=== PATIENT | male | born 1955 | race Caucasian/White ===

== ENCOUNTER 2017-06-28 22:45 | Emergency (ER) | payer OTHER ==
[2017-06-28 22:59] VITALS: BP 215/132; PULSE 86; TEMP 97.8; BMI 29.2
--- NOTE | 2017-06-28 23:39 | PDOC ---
History of Present Illness - General History Source: Patient Exam Limitations: No Limitations - History of Present Illness Initial Comments: 06/29/17 00:11 The patient is a 62 year old male with a significant past medical history recurrent non Hodgkin's lymphoma stage III, with chemotherapy (2014) and radiation (2016), glaucoma, and asthma, presenting to the Emergency Department with left eye pain and headache which has worsened over the night. The patient admits that he was diagnosed with non Hodgkins lymphoma in 2014 in his right armpit with metastasis to his abdomen, for which he underwent chemotherapy. He states that the cancer returned about one year later, and metastasized to his left eye. He admits that his eye at one point was swollen shut. He then underwent radiation, which resolved the eye swelling and pain, though he admits his doctors were concerned that the lymphoma may have spread into the head or brain. He states that the radiation finished about one year ago, and that he is here visiting family as he lives in [place]. He is here today due to eye pain behind his left eye that feels similar to the previous eye pain he has experienced. He admits to a headache, 12/10 in severity, for which he took Tramadol with little relief. The patient states that he was due to return to chemotherapy last week, though pushed it off as he is not in [place] and would rather be with his family. The patient denies blurry vision, or double vision. Patient denies chest pain, palpitations, and shortness of breath. Patient denies lightheadedness, or loss of consciousness. Patient denies fever, chills, or cough. <Hillary Denny - Last Filed: 06/29/17 00:11> <Sharla Olmos - Last Filed: 06/29/17 02:36> - General Chief Complaint: Pain Stated Complaint: PAIN Time Seen by Provider: 06/28/17 23:36 Past History <Hillary Denny - Last Filed: 06/29/17 00:11> - Past Medical History Asthma: Yes Cancer: Yes (Abdomen, underarm, liver, kidneys, brain) GI Disorders: Yes (Diverticulitis) Other medical history: Neuropathy - Psycho/Social/Smoking Cessation Hx Suicidal Ideation: No Smoking History: Never smoked Information on smoking cessation initiated: No Hx Alcohol Use: No Drug/Substance Use Hx: No Substance Use Type: None <Sharla Olmos - Last Filed: 06/29/17 02:36> - Past Medical History Allergies/Adverse Reactions: Allergies Allergy/AdvReac Type Severity Reaction Status Date / Time albuterol Allergy Severe Verified 06/28/17 22:52 meperidine HCl [From Demerol] Allergy Severe Verified 06/28/17 22:52 Penicillins Allergy Severe Verified 06/28/17 22:52 Home Medications: Ambulatory Orders Oxycodone HCl/Acetaminophen [Percocet 5-325 mg Tablet] 1 - 2 tab PO Q6H PRN #20 tab MDD 8 tabs 06/29/17 Review of Systems - Review of Systems Able to Perform ROS?: Yes Comments:: 06/29/17 00:12 GENERAL/CONSTITUTIONAL: No fever or chills. No weakness. HEAD, EYES, EARS, NOSE AND THROAT: + left eye pain. No change in vision. No ear pain or discharge. No sore throat. GASTROINTESTINAL: No nausea, vomiting, diarrhea or constipation. GENITOURINARY: No dysuria, frequency, or change in urination. CARDIOVASCULAR: No chest pain or shortness of breath. RESPIRATORY: No cough, wheezing, or hemoptysis. MUSCULOSKELETAL: No joint or muscle swelling or pain. No neck or back pain. SKIN: No rash NEUROLOGIC: + headache. No vertigo, loss of consciousness, or change in strength /sensation. ENDOCRINE: No increased thirst. No abnormal weight change. HEMATOLOGIC/LYMPHATIC: No anemia, easy bleeding, or history of blood clots. ALLERGIC/IMMUNOLOGIC: No hives or skin allergy. <Hillary Denny - Last Filed: 06/29/17 00:11> *Physical Exam - Vital Signs Last Vital Signs Temp Pulse Resp BP Pulse Ox 97.8 F 86 20 215/132 99 06/28/17 22:53 06/28/17 22:53 06/28/17 22:53 06/28/17 22:53 06/28/17 22:53 <Hillary Denny - Last Filed: 06/29/17 00:11> - Vital Signs Last Vital Signs Temp Pulse Resp BP Pulse Ox 97.8 F 86 20 215/132 99 06/28/17 22:53 06/28/17 22:53 06/28/17 22:53 06/28/17 22:53 06/28/17 22:53 - Physical Exam Comments: GENERAL: Awake, alert, and fully oriented, appears in obvious discomfort. HEAD: No signs of trauma EYES: Slight L proptosis. PERRLA, EOMI, sclera anicteric, conjunctiva clear. ENT: Auricles normal inspection, hearing grossly normal, nares patent, oropharynx clear without exudates. Moist mucosa. R munoz's palsy. NECK: Normal ROM, supple, no lymphadenopathy, JVD, or masses LUNGS: Breath sounds equal, clear to auscultation bilaterally. No wheezes, and no crackles HEART: Regular rate and rhythm, normal S1 and S2, no murmurs, rubs or gallops ABDOMEN: Soft, nontender, normoactive bowel sounds. No guarding, no rebound. No masses EXTREMITIES: Normal range of motion, no edema. No clubbing or cyanosis. No cords, erythema, or tenderness NEUROLOGICAL: Cranial nerves II through XII grossly intact. Normal speech, normal gait SKIN: Warm, Dry, normal turgor, no rashes or lesions noted. <Sharla Olmos - Last Filed: 06/29/17 02:36> ED Treatment Course - Medications Given in the ED: ED Medications Discontinued Medications Generic Name Dose Route Start Last Admin Trade Name Freq PRN Reason Stop Dose Admin Morphine Sulfate 4 mg 06/29/17 00:04 06/29/17 00:10 Morphine Injection - IVPUSH 06/29/17 00:05 4 mg ONCE ONE Administration <Hillary Denny - Last Filed: 06/29/17 00:11> Medical Decision Making - Medical Decision Making Pt with terminal non-Hodgkins lymphoma, presenting with L eye pain and LU. He has intermittent history of similar pain, related to spread of his CA. This is unchanged from prior, therefore there was no indication for imaging. He was previously on fentanyl patch for pain, but states that he did not want to continue it, did not like the side effects, and prefers to be off medication whenever possible for quality of life. However, today the pain was severe and was not relieved by tramadol. He agreed to IV placement to give morphine. After 4 mg morphine the pain was much better, and even better after 2 additional mg. He did not want any additional medication for pain, however, I counseled him that the pain may return when the morphine wears off. 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 He is here visiting family , lives in [place]. I offered rx to help him avoid additional ED visits, as he prefers to avoid hospitals, again, for quality of life reasons. <Sharla Olmos - Last Filed: 06/29/17 02:36> *DC/Admit/Observation/Transfer - Attestations Scribe Attestion: 06/29/17 00:12 Documentation prepared by Hillary Denny, acting as medical records coordinator for Sharla Olmos MD. <Hillary Denny - Last Filed: 06/29/17 00:11> - Discharge Dispostion Admit: No <Sharla Olmos - Last Filed: 06/29/17 02:36> Diagnosis at time of Disposition: Pain, eye, left - Discharge Dispostion Disposition: HOME Condition at time of disposition: Improved - Prescriptions Prescriptions: Oxycodone HCl/Acetaminophen [Percocet 5-325 mg Tablet] 1 - 2 tab PO Q6H PRN #20 tab MDD 8 tabs PRN Reason: Severe Pain - Patient Instructions Printed Discharge Instructions: DI for Acute Pain -- Adult
[2017-06-28] MEDS ORDERED: morphine CARPU-JECT 4 MG/1 ML DISP.SYRIN ONE (23:59)
[2017-06-29] MEDS ORDERED: morphine CARPU-JECT 4 MG/1 ML DISP.SYRIN IVPUSH ONE (00:04)
[2017-06-29] MEDS ORDERED: morphine CARPU-JECT 2 MG/1 ML DISP.SYRIN IVPUSH ONE (01:05)
[2017-06-29] MEDS ORDERED: morphine CARPU-JECT 4 MG/1 ML DISP.SYRIN ONE (01:13)
== END 2017-06-29 01:31 | disposition home or self-care (01) ==
LOC: JER 22:45
PROC: 3E033NZ Introduction of Analgesics, Hypnotics, Sedatives into Peripheral Vein, Percutaneous Approach (ICD-10-PCS; principal; 2017-06-28)
DX: H57.12 Ocular pain, left eye (principal); C85.90 Non-Hodgkin lymphoma, unspecified, unspecified site
CPT/HCPCS: 99281-25

== ENCOUNTER 2017-07-03 20:49 | Emergency (ER) | payer OTHER ==
[2017-07-03 21:07] VITALS: BMI 29.0
[2017-07-03] MEDS ORDERED: morphine CARPU-JECT 4 MG/1 ML DISP.SYRIN IVPUSH ONE ×2 (22:35→23:16)
--- NOTE | 2017-07-03 22:35 | PDOC ---
History of Present Illness - General History Source: Patient, Old Records Exam Limitations: No Limitations - History of Present Illness Initial Comments: 07/03/17 23:40 The patient is a 62 year old male with a significant PMH of recurrent non Hodgkins lymphoma stage III with chemotherapy (2014) and radiation (2016), glaucoma, and asthma who presents to the emergency department with a headache beginning approximately 5 days ago. The patient describes the headache as a hammering sensation radiating to his left eye and rated 10/10 in severity. The patient also reports bilateral lower extremity swelling. The patient admits being diagnosed with lymphoma in 2014 in his right armpit with metastasis to the abdomen, which he underwent chemotherapy and radiation for. The patient had a similar episode in 2016, but the headache and left eye pain was reduced through radiation. The patient notes that he came to [place] from [place] to visit family after his radiation was complete. The patient was in the ED on 06/29 for a similar complaint of headache and left eye pain. The patient denies chest pain, shortness of breath, and dizziness. Denies fever, chills, nausea, vomit, diarrhea and constipation. Denies dysuria, frequency, urgency and hematuria. Allergies: Albuterol, Meperidine HCl, Penicillin Past surgical history: Social history: Moderate cigarette use. No reported alcohol or drug use. <Justice Guerra - Last Filed: 07/03/17 23:40> <Ewa Myers - Last Filed: 07/04/17 04:16> - General Chief Complaint: Pain Stated Complaint: PAIN Time Seen by Provider: 07/03/17 22:12 Past History <Justice Guerra - Last Filed: 07/03/17 23:40> - Past Medical History Asthma: Yes Cancer: Yes (Abdomen, underarm, liver, kidneys, brain) GI Disorders: Yes (Diverticulitis) - Psycho/Social/Smoking Cessation Hx Suicidal Ideation: No Smoking History: Never smoked Information on smoking cessation initiated: No Hx Alcohol Use: No Drug/Substance Use Hx: No Substance Use Type: None <Ewa Myers - Last Filed: 07/04/17 04:16> - Past Medical History Allergies/Adverse Reactions: Allergies Allergy/AdvReac Type Severity Reaction Status Date / Time albuterol Allergy Severe Verified 07/03/17 21:03 meperidine HCl [From Demerol] Allergy Severe Verified 07/03/17 21:03 Penicillins Allergy Severe Verified 07/03/17 21:03 Home Medications: Ambulatory Orders Oxycodone HCl/Acetaminophen [Percocet 5-325 mg Tablet] 1 - 2 tab PO Q6H PRN #20 tab MDD 8 tabs 06/29/17 Morphine *Sr* [Ms Contin -] 30 mg PO Q12H #10 tablet.er MDD 2 07/04/17 Review of Systems - Review of Systems Comments:: 07/03/17 23:42 GENERAL/CONSTITUTIONAL: (+) Generalized weakness. No fever or chills.. HEAD, EYES, EARS, NOSE AND THROAT: No change in vision. No ear pain or discharge. No sore throat. CARDIOVASCULAR: No chest pain or shortness of breath. RESPIRATORY: No cough, wheezing, or hemoptysis. GASTROINTESTINAL: No nausea, vomiting, diarrhea or constipation. GENITOURINARY: No dysuria, frequency, or change in urination. MUSCULOSKELETAL: No joint or muscle swelling or pain. No neck or back pain. SKIN: No rash NEUROLOGIC: (+) Headache. No, vertigo, loss of consciousness, or change in strength/sensation. ENDOCRINE: No increased thirst. No abnormal weight change. HEMATOLOGIC/LYMPHATIC: No anemia, easy bleeding, or history of blood clots. ALLERGIC/IMMUNOLOGIC: No hives or skin allergy. <Justice Guerra - Last Filed: 07/03/17 23:40> *Physical Exam - Vital Signs Last Vital Signs Temp Pulse Resp BP Pulse Ox 98.7 F 105 H 20 176/106 99 07/03/17 21:04 07/03/17 21:04 07/03/17 21:04 07/03/17 21:04 07/03/17 21:04 - Physical Exam Comments: 07/03/17 23:42 GENERAL: (+) Acute distress. Awake, alert, and fully oriented. HEAD: No signs of trauma EYES: PERRLA, EOMI, sclera anicteric, conjunctiva clear ENT: Auricles normal inspection, hearing grossly normal, nares patent, oropharynx clear without exudates. Moist mucosa NECK: Normal ROM, supple, no lymphadenopathy, JVD, or masses LUNGS: Breath sounds equal, clear to auscultation bilaterally. No wheezes, and no crackles HEART: Regular rate and rhythm, normal S1 and S2, no murmurs, rubs or gallops ABDOMEN: (+) Splenomegaly. (+) Hepatomegaly. Soft, nontender, normoactive bowel sounds. No guarding, no rebound. No masses GENITOURINARY: (+) Right groin lymphadenopathy. EXTREMITIES: (+) Bilateral lower extremity pitting edema. (+) Right axillary lymphadenopathy. Normal range of motion. No clubbing or cyanosis. No cords or erythema. NEUROLOGICAL: Cranial nerves II through XII grossly intact. No weakness or numbness. Normal speech. SKIN: Warm, Dry, normal turgor, no rashes or lesions noted. <Justice Guerra - Last Filed: 07/03/17 23:40> - Vital Signs Last Vital Signs Temp Pulse Resp BP Pulse Ox 98.7 F 105 H 20 176/106 99 07/03/17 21:04 07/03/17 21:04 07/03/17 21:04 07/03/17 21:04 07/03/17 21:04 <Ewa Myers - Last Filed: 07/04/17 04:16> ED Treatment Course - Medications Given in the ED: ED Medications Discontinued Medications Generic Name Dose Route Start Last Admin Trade Name Freq PRN Reason Stop Dose Admin Morphine Sulfate 4 mg 07/03/17 22:35 07/03/17 23:05 Morphine Injection - IVPUSH 07/03/17 22:36 4 mg ONCE ONE Administration Morphine Sulfate 4 mg 07/03/17 23:16 07/03/17 23:28 Morphine Injection - IVPUSH 07/03/17 23:17 4 mg ONCE ONE Administration Ondansetron HCl 4 mg 07/03/17 23:17 07/03/17 23:28 Zofran Injection IVPB 07/03/17 23:18 4 mg ONCE ONE Administration Sodium Chloride 250 ml 07/03/17 23:16 07/03/17 23:28 Normal Saline - IV 07/03/17 23:17 250 ml ONCE ONE Administration <Justice Guerra - Last Filed: 07/03/17 23:40> Medical Decision Making - Medical Decision Making 07/04/17 04:07 Pt has metastatic lymphoma with organomegaly and mets. He lives in [facility], but is visiting relatives in [facility] and comes now for uncontrolled headache due to intracranial/orbital area mets/ metastatic pains. Pt doesn't want to stay in the hospital. He feels better with narcotic meds. We attempted to draw basic labs, but attempt was unsuccessful, and pt is refusing further blood draws. Pt is improved in the ER and he will be sent home with MS garza. Pt anticipates returning to [facility] in a couple of weeks at which time he will start radiation therapy. <Ewa Myers - Last Filed: 07/04/17 04:16> *DC/Admit/Observation/Transfer - Attestations Scribe Attestion: 07/03/17 23:43 Documentation prepared by Justice Guerra, acting as medical center director for Ewa yMers MD. <Justice Guerra - Last Filed: 07/03/17 23:40> - Discharge Dispostion Admit: No <Ewa Myers - Last Filed: 07/04/17 04:16> Diagnosis at time of Disposition: Lymphoma involving liver - Discharge Dispostion Disposition: HOME Condition at time of disposition: Improved - Prescriptions Prescriptions: Morphine *Sr* [Ms Contin -] 30 mg PO Q12H #10 tablet.er MDD 2 - Patient Instructions Printed Discharge Instructions: Nutrition for Cigarette Smokers (Alternative Therapy), Coping With Pain Related to Cancer and Chemotherapy, Eating a Diet Low in Saturated Fat, Trans Fat, and Cholesterol, Do Raw Food (Living Food) Diets Promote Good Health?
[2017-07-03] MEDS ORDERED: morphine CARPU-JECT 4 MG/1 ML DISP.SYRIN ONE ×2 (22:43→23:16)
[2017-07-03] MEDS ORDERED: SODIUM CHLORIDE 0.9% 500 ML INFUS.BAG IV ONE (23:16)
[2017-07-03] MEDS ORDERED: ONDANSETRON 4 MG/2 ML VIAL ONE (23:17)
[2017-07-03] MEDS ORDERED: ONDANSETRON 4 MG/2 ML VIAL IVPB ONE (23:17)
[2017-07-04] MEDS ORDERED: HYDROmorphone HCL CARPU-JECT 2 MG/1 ML DISP.SYRIN IVPUSH ONE ×2 (00:34→03:25)
[2017-07-04] MEDS ORDERED: HYDROmorphone HCL CARPU-JECT 2 MG/1 ML DISP.SYRIN ONE ×2 (00:35→03:41)
[2017-07-04 04:12] VITALS: BP 124/72; PULSE 91; TEMP 97.1
== END 2017-07-04 04:06 | disposition home or self-care (01) ==
LOC: JER 20:49
PROC: 3E033NZ Introduction of Analgesics, Hypnotics, Sedatives into Peripheral Vein, Percutaneous Approach (ICD-10-PCS; principal; 2017-07-03)
PROC: 3E033NZ Introduction of Analgesics, Hypnotics, Sedatives into Peripheral Vein, Percutaneous Approach (ICD-10-PCS; 2017-07-03)
PROC: 3E033GC Introduction of Other Therapeutic Substance into Peripheral Vein, Percutaneous Approach (ICD-10-PCS; 2017-07-03)
DX: G89.3 Neoplasm related pain (acute) (chronic) (principal); C85.88 Other specified types of non-Hodgkin lymphoma, lymph nodes of multiple sites; J45.909 Unspecified asthma, uncomplicated; Z87.19 Personal history of other diseases of the digestive system
CPT/HCPCS: 99283-25

== ENCOUNTER 2017-07-14 10:48 | Emergency (ER) | payer OTHER ==
[2017-07-14 10:56] VITALS: TEMP 98.2; BMI 28.1
--- NOTE | 2017-07-14 11:25 | PDOC ---
History of Present Illness - General History Source: Patient Exam Limitations: No Limitations - History of Present Illness Initial Comments: 07/14/17 11:47 The patient is a 62 year old male, with a significant past medical history of recurrent non Hodgkins lymphoma stage III with mets to abdomen, axilla, liver, kidneys, brain, L eye (last radiation in April 2017), Glaucoma, and Asthma who presents to the emergency department with headache and L eye pain. Patient complains of L occipital headache, 10/10 in severity, throbbing in nature with no associated nausea, vomiting, dizziness, photophobia or sound sensitivity. Patient states his lymphoma has spread to L eye and reports continuous pain in that area. Patient has being taking Morphine for pain however denies any relief. Patient was previously seen in the ED on 07/04/2017 for the same complaints and presents to the ED for further evaluation. He denies chest pain or SOB. He denies fever, chills, abdominal pain, diarrhea or constipation. He denies dysuria, frequency, urgency or hematuria. Allergies: albuterol, meperidine HCl, penicillins Past surgical history: Laminectomy L4-5, S1 Social history: None PCP: None <Monique Carney - Last Filed: 07/14/17 11:47> <Sharla Olmos - Last Filed: 07/14/17 17:36> - General Chief Complaint: Headache Stated Complaint: HEADACHE Time Seen by Provider: 07/14/17 11:09 Past History <Monique Carney - Last Filed: 07/14/17 11:47> - Past Medical History Asthma: Yes Cancer: Yes (Abdomen, underarm, liver, kidneys, brain) GI Disorders: Yes (Diverticulitis) - Psycho/Social/Smoking Cessation Hx Anxiety: No Suicidal Ideation: No Smoking History: Never smoked Have you smoked in the past 12 months: Yes Number of Cigarettes Smoked Daily: 6 Information on smoking cessation initiated: Yes Hx Alcohol Use: No Drug/Substance Use Hx: No Substance Use Type: None <Sharla Olmos - Last Filed: 07/14/17 17:36> - Past Medical History Allergies/Adverse Reactions: Allergies Allergy/AdvReac Type Severity Reaction Status Date / Time albuterol Allergy Severe Verified 07/14/17 10:52 meperidine HCl [From Demerol] Allergy Severe Verified 07/14/17 10:52 Penicillins Allergy Severe Verified 07/14/17 10:52 Home Medications: Ambulatory Orders Erythromycin 0.5% Eye Ointment [Erythromycin 0.5% Eye Ointment -] 1 applic OS QID #1 tube 07/14/17 Oxycodone HCl/Acetaminophen [Percocet 5-325 mg Tablet] 1 - 2 tab PO Q6H PRN #20 tablet MDD 8 tabs 07/14/17 Tramadol HCl [Ultram] 100 mg PO PRN 07/14/17 Review of Systems - Review of Systems Able to Perform ROS?: Yes Comments:: 07/14/17 11:47 GENERAL/CONSTITUTIONAL: No fever or chills. No weakness. HEAD, EYES, EARS, NOSE AND THROAT: +L eye pain. No change in vision. No ear pain or discharge. No sore throat. GASTROINTESTINAL: No nausea, vomiting, diarrhea or constipation. GENITOURINARY: No dysuria, frequency, or change in urination. CARDIOVASCULAR: No chest pain or shortness of breath. RESPIRATORY: No cough, wheezing, or hemoptysis. MUSCULOSKELETAL: No joint or muscle swelling or pain. No neck or back pain. SKIN: No rash NEUROLOGIC: +headache. No vertigo, loss of consciousness, or change in strength/ sensation. ENDOCRINE: No increased thirst. No abnormal weight change. HEMATOLOGIC/LYMPHATIC: No anemia, easy bleeding, or history of blood clots. ALLERGIC/IMMUNOLOGIC: No hives or skin allergy. <Monique Carney - Last Filed: 07/14/17 11:47> *Physical Exam - Vital Signs Last Vital Signs Temp Pulse Resp BP Pulse Ox 98.2 F 104 H 18 159/107 100 07/14/17 10:53 07/14/17 10:53 07/14/17 10:53 07/14/17 10:53 07/14/17 10:53 <Monique Carney - Last Filed: 07/14/17 11:47> - Vital Signs Last Vital Signs Temp Pulse Resp BP Pulse Ox 98.2 F 104 H 18 159/107 100 07/14/17 10:53 07/14/17 10:53 07/14/17 10:53 07/14/17 10:53 07/14/17 10:53 - Physical Exam Comments: GENERAL: Awake, alert, and fully oriented, tearful, in obvious emotional distress. HEAD: No signs of trauma EYES: PERRLA, EOMI, sclera anicteric, conjunctiva clear. L eye slightly proptotic, with matting of the lashes and purulent discharge. ENT: Auricles normal inspection, hearing grossly normal, nares patent, oropharynx clear without exudates. Moist mucosa NECK: Normal ROM, supple, no lymphadenopathy, JVD, or masses LUNGS: Breath sounds equal, clear to auscultation bilaterally. No wheezes, and no crackles HEART: Regular rate and rhythm, normal S1 and S2, no murmurs, rubs or gallops ABDOMEN: Soft, nontender, normoactive bowel sounds. No guarding, no rebound. No masses EXTREMITIES: Normal range of motion, no edema. No clubbing or cyanosis. No cords, erythema, or tenderness NEUROLOGICAL: Cranial nerves II through XII grossly intact. Normal speech, normal gait SKIN: Warm, Dry, normal turgor, no rashes or lesions noted. <Sharla Olmos - Last Filed: 07/14/17 17:36> ED Treatment Course - Medications Given in the ED: ED Medications Discontinued Medications Generic Name Dose Route Start Last Admin Trade Name Freq PRN Reason Stop Dose Admin Morphine Sulfate 6 mg 07/14/17 11:27 07/14/17 11:43 Morphine Injection - IVPUSH 07/14/17 11:28 6 mg ONCE ONE Administration <Monique Carney - Last Filed: 07/14/17 11:47> *DC/Admit/Observation/Transfer - Attestations Scribe Attestion: 07/14/17 11:47 Documentation prepared by Monique Carney, acting as medical laboratory technical officer for Sharla Olmos MD <Monique Carney - Last Filed: 07/14/17 11:47> - Discharge Dispostion Admit: No <Sharla Olmos - Last Filed: 07/14/17 17:36> Diagnosis at time of Disposition: Headache Qualifiers: Headache type: unspecified Headache chronicity pattern: episodic headache Intractability: not intractable Qualified Code(s): R51 - Headache - Discharge Dispostion Disposition: HOME Condition at time of disposition: Stable - Prescriptions Prescriptions: Erythromycin 0.5% Eye Ointment [Erythromycin 0.5% Eye Ointment -] 1 applic OS QID #1 tube Oxycodone HCl/Acetaminophen [Percocet 5-325 mg Tablet] 1 - 2 tab PO Q6H PRN #20 tablet MDD 8 tabs PRN Reason: Severe Pain - Referrals Referrals: STAFF,NOT ON [Primary Care Provider] -
[2017-07-14] MEDS ORDERED: morphine CARPU-JECT 4 MG/1 ML DISP.SYRIN IVPUSH ONE ×2 (11:27→12:27)
[2017-07-14] MEDS ORDERED: morphine CARPU-JECT 10 MG/1 ML DISP.SYRIN ONE ×2 (11:28→12:20)
[2017-07-14] MEDS ORDERED: HYDROmorphone HCL CARPU-JECT 1 MG/1 ML DISP.SYRIN IVPB ONE (13:42)
[2017-07-14] MEDS ORDERED: SODIUM CHLORIDE 1,000 ML IV STA (13:42)
[2017-07-14] MEDS ORDERED: HYDROmorphone HCL CARPU-JECT 1 MG/1 ML DISP.SYRIN ONE (13:52)
[2017-07-14 16:26] VITALS: BP 165/91; PULSE 68
== END 2017-07-14 17:56 | disposition home or self-care (01) ==
LOC: JER 10:48
PROC: 3E0337Z Introduction of Electrolytic and Water Balance Substance into Peripheral Vein, Percutaneous Approach (ICD-10-PCS; principal; 2017-07-14)
PROC: 3E033NZ Introduction of Analgesics, Hypnotics, Sedatives into Peripheral Vein, Percutaneous Approach (ICD-10-PCS; 2017-07-14)
PROC: 3E033NZ Introduction of Analgesics, Hypnotics, Sedatives into Peripheral Vein, Percutaneous Approach (ICD-10-PCS; 2017-07-14)
DX: R51 Headache (principal); C85.88 Other specified types of non-Hodgkin lymphoma, lymph nodes of multiple sites; G89.3 Neoplasm related pain (acute) (chronic); Z87.19 Personal history of other diseases of the digestive system; Z87.09 Personal history of other diseases of the respiratory system
CPT/HCPCS: 96361; 96374; 96375; 99283-25